=== PATIENT | male | born 1950 | race Caucasian/White ===

== ENCOUNTER 2019-07-03 09:35 | Day surgery (SDC) | payer BC, OTHER ==
[2019-07-03 10:25] VITALS: BMI 31.9
[2019-07-03] MEDS ORDERED: MIDAZOLAM HCL 2 MG/2 ML SINGLE DOSE VIAL ONE (11:12)
[2019-07-03] MEDS ORDERED: PROPOFOL 20 ML ONE (11:36)
[2019-07-03] MEDS ORDERED: LIDOCAINE HCL 2% (50ML VIAL) INF ONE (11:40)
[2019-07-03] MEDS ORDERED: ACETAMINOPHEN 325 MG TABLET (FP) PO PRN (12:25)
[2019-07-03] MEDS ORDERED: ONDANSETRON 4 MG/2 ML VIAL IVPUSH PRN (12:25)
[2019-07-03 12:27] VITALS: TEMP 98.1
[2019-07-03] MEDS ORDERED: LACTATED RINGERS SOLUTION 1,000 ML IV SCH (12:30)
[2019-07-03 13:05] VITALS: BP 123/70; PULSE 56
--- NOTE | 2019-07-09 17:12 | OP ---
DATE OF OPERATION: 07/03/2019 PREOPERATIVE DIAGNOSIS: Right carpal tunnel syndrome. POSTOPERATIVE DIAGNOSIS: Right carpal tunnel syndrome. OPERATIVE PROCEDURE: Right carpal tunnel release. ANESTHESIA: Local with sedation. COMPLICATIONS: None. ESTIMATED BLOOD LOSS: Minimal. INDICATIONS FOR PROCEDURE: The patient is a 68-year-old male with the above findings indicated for operative treatment. Risks, benefits, alternatives were discussed with the patient at length. Proper informed consent was obtained. DESCRIPTION OF PROCEDURE: After proper identification of patient and correct operative site, patient was brought to the operating room, placed supine on the operative table, prominences well padded. Sedation and local anesthesia were given. Right upper extremity was prepped and draped in the usual sterile fashion. Well-padded tourniquet was placed with a sterile prep. Esmarch bandage used to exsanguinate the left upper extremity. Tourniquet was inflated to 250 mmHg. Longitudinal incision was made at the proximal aspect of the palm. Incision was taken sharply through the skin with sharp and blunt dissection through the subcutaneous tissues. Palmar fascia was divided longitudinally. Transcarpal ligament was divided longitudinally along with the distal 4 cm antebrachial fascia under direct visualization with loop magnification. This provided complete release of the median nerve at the wrist. The wound was repaired with 5-0 fast-absorbing plain gut suture. Sterile dressings were applied. Patient was brought to the recovery room in stable condition. He tolerated the procedure well. RUBA MALONE M.D. [id number]
== END 2019-07-03 12:55 | disposition home or self-care (01) ==
LOC: FASU 09:35
PROVIDERS: ATTEND Orthopaedic Surgery Hand Surgery
PROC: 01N50ZZ Release Median Nerve, Open Approach (ICD-10-PCS; principal; 2019-07-03 11:46)
DX: G56.01 Carpal tunnel syndrome, right upper limb (principal)

== ENCOUNTER 2021-09-18 21:56 | Emergency (ER) | payer BC, OTHER ==
[2021-09-18 22:09] VITALS: BP 180/88; PULSE 75; TEMP 98.6; BMI 67.0
== END 2021-09-19 00:02 | disposition home or self-care (01) ==
LOC: JER 21:56
DX: M25.562 Pain in left knee (principal); W01.0XXA Fall on same level from slipping, tripping and stumbling without subsequent striking against object, initial encounter
CPT/HCPCS: 73562-TC-LT-FY; 99283-25

== ENCOUNTER 2023-03-23 04:16 | Day surgery (SDC) | payer BC, OTHER ==
[2023-03-22 17:31] VITALS: BMI 30.4
[~2023-03-23 04:16] MED LIST: BUPIVACAINE HCL/PF 0.25% (2.5MG/ML) 10 ML VIAL IJ ONE; BUPIVACAINE HCL/PF 0.5% (5 MG/ML) 30 ML VIAL IJ ONE; LIDOCAINE HCL 1%, 10 MG/ML (20ML VIAL) INF ONE
[2023-03-23] MEDS ORDERED: BUPIVACAINE HCL/PF 0.25% (2.5MG/ML) 10 ML VIAL ONE (10:15)
[2023-03-23] MEDS ORDERED: oxyCODONE HCL 5 MG TABLET PO PRN (12:03)
[2023-03-23] MEDS ORDERED: LIDOCAINE HCL 1%, 10 MG/ML (20ML VIAL) ONE (12:05)
[2023-03-23] MEDS ORDERED: BUPIVACAINE HCL/PF 0.5% (5MG/ML) 10 ML VIAL ONE (12:05)
[2023-03-23] MEDS ORDERED: SUCCINYLCHOLINE CHLORIDE 200 MG/10 ML SYRINGE ONE ×2 (12:13→14:40)
[2023-03-23] MEDS ORDERED: ROCURONIUM BROMIDE 50 MG/5 ML SYRINGE ONE ×2 (12:14→14:40)
[2023-03-23] MEDS ORDERED: LACTATED RINGERS SOLUTION 1,000 ML IV SCH (12:15)
[2023-03-23] MEDS ORDERED: FENTANYL CITRATE/PF 50 MCG/ML VIAL ONE (12:30)
[2023-03-23] MEDS ORDERED: MIDAZOLAM HCL 2 MG/2 ML SINGLE DOSE VIAL ONE (12:30)
[2023-03-23] MEDS ORDERED: ceFAZolin SODIUM 1 GM VIAL ONE (12:47)
[2023-03-23] MEDS ORDERED: ceFAZolin SODIUM 1 GM VIAL IVPB ONE (12:49)
[2023-03-23] MEDS ORDERED: HYDROmorphone HCl 2 MG/ML VIAL ONE (12:51)
[2023-03-23] MEDS ORDERED: SUGAMMADEX SODIUM 200 MG/2 ML VIAL ONE (13:06)
[2023-03-23] MEDS ORDERED: LIDOCAINE HCL 1%, 10 MG/ML (20ML VIAL) INF ONE (13:31)
[2023-03-23] MEDS ORDERED: BUPIVACAINE HCL/PF 0.5% (5 MG/ML) 30 ML VIAL IJ ONE (13:31)
[2023-03-23] MEDS ORDERED: hydrALAZINE HCL 20 MG/ML VIAL IVPUSH PRN (14:11)
[2023-03-23] MEDS ORDERED: hydrALAZINE HCL 20 MG/ML VIAL ONE (14:47)
[2023-03-23 18:00] VITALS: BP 154/80; PULSE 66; RESP 20; TEMP 98.2
== END 2023-03-23 18:50 | disposition home or self-care (01) ==
LOC: JASU-SURG 04:16
PROVIDERS: ATTEND Surgery
PROC: 0FT44ZZ Resection of Gallbladder, Percutaneous Endoscopic Approach (ICD-10-PCS; principal; 2023-03-23 13:00)
DX: K80.10 Calculus of gallbladder with chronic cholecystitis without obstruction (principal)
CPT/HCPCS: 86850; 86900; 86901; 88304-TC; 94760